=== PATIENT | male | born 1960 ===

== ENCOUNTER 2016-08-12 07:44 | Emergency (ER) | payer OTHER ==
[2016-08-12 08:00] VITALS: BMI 21.1
[2016-08-12 08:04] VITALS: BP 167/101; PULSE 82; RESP 18; TEMP 98.5; O2SAT 97
--- NOTE | 2016-08-12 09:13 | ED PDOC ---
Arrival/HPI - General Chief Complaint: Abdominal Pain Time Seen by Provider: 08/12/16 08:02 Historian: Patient - History of Present Illness Narrative History of Present Illness (Text): 08/12/16 09:06 A 55 year old male, whose past medical history includes hepatitis c and asthma, presents to the emergency department complaining of constant sharp right sided abdominal pain for the past several months. Patient denies any relieving or exacerbating factors. Patient notes mild constipation but denies any fever, chills, nausea, vomiting, chest pain, shortness of breath or any other complaints. PMD: Dr. Gutierres Time/Duration: Other (few months) Symptom Course: Unchanged Quality: Other Context: Home Past Medical History - Provider Review Nursing Documentation Reviewed: Yes - Cardiac Hx Hypertension: No Hx Peripheral Edema: Yes - Pulmonary Hx Asthma: Yes - Neurological Hx Seizures: No - HEENT Hx HEENT Disorder: No - Renal Hx Renal Disorder: No - Endocrine/Metabolic Hx Endocrine Disorders: No - Hematological/Oncological Hx Blood Disorders: No (pt states he is unsure) - Integumentary Hx Dermatological Disorder: No - Musculoskeletal/Rheumatological Hx Musculoskeletal Disorders: No Hx Falls: No - Gastrointestinal Hx Gastrointestinal Disorders: No - Genitourinary/Gynecological Hx Sexually Transmitted Diseases: No - Psychiatric Hx Substance Use: Yes (HEROIN) - Anesthesia Hx Anesthesia: Yes Hx Anesthesia Reactions: No Hx Malignant Hyperthermia: No - Suicidal Assessment Feels Threatened In Home Enviroment: No Family/Social History - Physician Review Nursing Documentation Reviewed: Yes Family/Social History: No Known Family HX Smoking Status: Heavy Smoker > 10 Cigarettes Daily Hx Alcohol Use: No Hx Substance Use: Yes (HEROIN) Substance used: heroin Allergies/Home Meds Allergies/Adverse Reactions: Allergies No Known Allergies Allergy (Verified 11/10/15 11:42) Home Medications: Home Meds Medication Instructions Recorded Confirmed Sofosbuvir/Velpatasvir [Epclusa 1 each PO DAILY 08/12/16 08/12/16 400 mg-100 mg Tablet] Review of Systems - Physician Review All systems were reviewed & negative as marked: Yes - Review of Systems Constitutional: absent: Fevers, Night Sweats Respiratory: absent: SOB Cardiovascular: absent: Chest Pain Gastrointestinal: Abdominal Pain, Constipation. absent: Nausea, Vomiting Physical Exam Vital Signs Reviewed: Yes Vital Signs Temp Pulse Resp BP Pulse Ox 08/12/16 08:00 98.5 F 82 18 167/101 H 97 Temperature: Afebrile Blood Pressure: Hypertensive Pulse: Regular Respiratory Rate: Normal Appearance: Positive for: Well-Appearing, Non-Toxic, Comfortable Pain Distress: None Mental Status: Positive for: Alert and Oriented X 3 - Systems Exam Head: Present: Atraumatic, Normocephalic Pupils: Present: PERRL Extroacular Muscles: Present: EOMI Conjunctiva: Present: Normal Mouth: Present: Moist Mucous Membranes Neck: Present: Normal Range of Motion Respiratory/Chest: Present: Clear to Auscultation, Good Air Exchange. No: Respiratory Distress, Accessory Muscle Use Cardiovascular: Present: Regular Rate and Rhythm, Normal S1, S2. No: Murmurs Abdomen: Present: Tenderness (RUQ and epigastric tendenress to palpation), Normal Bowel Sounds, Guarding (Mild). No: Distention, Peritoneal Signs Back: Present: Normal Inspection Upper Extremity: Present: Normal Inspection. No: Cyanosis, Edema Lower Extremity: Present: Normal Inspection. No: Edema Neurological: Present: GCS=15, CN II-XII Intact, Speech Normal Skin: Present: Warm, Dry, Normal Color. No: Rashes Psychiatric: Present: Alert, Oriented x 3, Normal Insight, Normal Concentration Medical Decision Making ED Course and Treatment: 08/12/16 09:06 Impression: A 55 year old male presents with right sided abdominal pain. Notes mild constipation but denies any fever, nausea, vomiting or diarrhea. Differential Diagnosis included but are not limited to: Biliary colic vs. Gastritis vs. Pancreatitis Progress Notes: Patient reports he has to be in court today and would like to leave emergency room. The patient is choosing to leave against medical advice. I have personally explained to the patient that choosing to do so may result in permanent bodily harm or . I have discussed at great length that without further evaluation and monitoring there may be unforeseen circumstances and/or deterioration causing permanent bodily harm or as a result of their choice. The patient is alert, oriented, and shows the mental capacity to make clear decisions regarding the patients health care at this time. The patient continues to wish to leave against medical advice. In light of the patients decision to leave against medical advice, follow-up has been arranged and the patient is aware of the importance to following up as instructed. The patient has been advised that they should return to the emergency room immediately if they change their mind at any time, or if their condition begins to change or worsen in any way. - Scribe Statement The provider has reviewed the documentation as recorded by the Lazara Bernabe Provider Scribe Attestation: All medical record entries made by the Scribe were at my direction and personally dictated by me. I have reviewed the chart and agree that the record accurately reflects my personal performance of the history, physical exam, medical decision making, and the department course for this patient. I have also personally directed, reviewed, and agree with the discharge instructions and disposition. Disposition/Present on Arrival - Present on Arrival Any Indicators Present on Arrival: No History of DVT/PE: No History of Uncontrolled Diabetes: No Urinary Catheter: No History of Decub. Ulcer: No History Surgical Site Infection Following: None - Disposition Have Diagnosis and Disposition been Completed?: Yes Diagnosis: Abdominal pain Disposition: HOME/ ROUTINE Disposition Time: 09:06 Patient Problems: Current Active Problems Problem Status Onset Abdominal pain Acute Condition: GOOD Discharge Instructions (ExitCare): Acute Abdominal Pain (ED) Additional Instructions: Mr Dobbins, thank you for letting us take care of you today. Your provider was Dr. Sommer. You were treated for Abdominal Pain. The emergency medical care you received today was directed at your acute symptoms. You left against medical advice but are advised to return to the Emergency Department if your symptoms worsen, do not improve, or if you have any other problems. Please contact your doctor or call one of the physicians/clinics you have been referred to that are listed on the Patient Visit Information form that is included in your discharge packet. Bring any paperwork you were given at discharge with you along with any medications you are taking to your follow up visit. Our treatment cannot replace ongoing medical care by a primary care provider (PCP) outside of the emergency department. Thank you for allowing [facility] of your care today. If you had an X-Ray or CT scan: A Radiologist will review the ED reading if any change in treatment is needed we will contact you. If you had a blood, urine, or wound culture: It will take several days for the results, if any change in treatment is needed we will contact you. If you had an STI test: It will take 48 hours for the results. Please call after 1 week if you have not heard back. Referrals: Christelle Gutierres MD [Primary Care Provider] - Follow up with primary
== END 2016-08-12 08:53 | disposition home or self-care (01) ==
LOC: ED 07:44
DX: R10.9 Unspecified abdominal pain (principal)

== ENCOUNTER 2016-09-05 23:00 | Observation (INO) | payer SELFPAY ==
[2016-09-05 23:23] VITALS: BMI 20.5
[2016-09-05 23:30] VITALS: O2SAT 97
--- NOTE | 2016-09-05 23:41 | ED PDOC ---
Arrival/HPI - General Chief Complaint: Abdominal Pain Time Seen by Provider: 09/05/16 23:35 Historian: Patient - History of Present Illness Narrative History of Present Illness (Text): 09/05/16 23:41 Mainor Mari is a 55 year old male, whose past medical history includes Hepatitis C and asthma, who presents to the Emergency department complaining of RUQ pain for several months. Patient admits to drinking beer today. Patient denies any fever, chills, chest pain, shortness of breath, diarrhea, urinary symptoms, back pain, neck pain, headache, dizziness, or any other complaints. PMD: Dr. Gutierres Time/Duration: Other (Several months) Symptom Onset: Gradual Symptom Course: Unchanged Activities at Onset: Light Context: Home Past Medical History - Provider Review Nursing Documentation Reviewed: Yes - Cardiac Hx Cardiac Disorders: Yes Hx Hypertension: No Hx Peripheral Edema: Yes - Pulmonary Hx Asthma: Yes - Neurological Hx Seizures: No - HEENT Hx HEENT Disorder: No - Renal Hx Renal Disorder: No - Endocrine/Metabolic Hx Endocrine Disorders: No - Hematological/Oncological Hx Blood Disorders: No (pt states he is unsure) Hx Cirrhosis: Yes Hx Hepatitis C: Yes - Integumentary Hx Dermatological Disorder: No - Musculoskeletal/Rheumatological Hx Musculoskeletal Disorders: No Hx Falls: No - Gastrointestinal Hx Gastrointestinal Disorders: Yes Hx Fatty Liver Disease: Yes - Genitourinary/Gynecological Hx Sexually Transmitted Diseases: No - Psychiatric Hx Substance Use: Yes (HEROIN) - Anesthesia Hx Anesthesia: Yes Hx Anesthesia Reactions: No Hx Malignant Hyperthermia: No - Suicidal Assessment Feels Threatened In Home Enviroment: No Family/Social History - Physician Review Nursing Documentation Reviewed: Yes Family/Social History: Unknown Family HX Smoking Status: Heavy Smoker > 10 Cigarettes Daily Hx Alcohol Use: No Hx Substance Use: Yes (HEROIN) Substance used: heroin Allergies/Home Meds Allergies/Adverse Reactions: Allergies No Known Allergies Allergy (Verified 09/05/16 23:23) Home Medications: Home Meds Medication Instructions Recorded Confirmed Sofosbuvir/Velpatasvir [Epclusa 1 each PO DAILY 08/12/16 09/05/16 400 mg-100 mg Tablet] Review of Systems - Physician Review All systems were reviewed & negative as marked: Yes - Review of Systems Constitutional: Normal. absent: Fevers Eyes: Normal ENT: Normal Respiratory: Normal. absent: SOB, Cough Cardiovascular: Normal. absent: Chest Pain Gastrointestinal: Abdominal Pain (+RUQ pain). absent: Diarrhea, Nausea, Vomiting Genitourinary Male: Normal Musculoskeletal: Normal. absent: Back Pain, Neck Pain Skin: Normal Neurological: Normal. absent: Headache, Dizziness Endocrine: Normal Hemo/Lymphatic: Normal Psychiatric: Normal Physical Exam Vital Signs Reviewed: Yes Vital Signs Temp Pulse Resp BP Pulse Ox 09/05/16 23:06 98.6 F 92 H 15 111/76 97 Temperature: Afebrile Blood Pressure: Normal Pulse: Regular Respiratory Rate: Normal Appearance: Positive for: Well-Appearing, Non-Toxic, Comfortable Pain Distress: None Mental Status: Positive for: Alert and Oriented X 3 - Systems Exam Head: Present: Atraumatic, Normocephalic Pupils: Present: PERRL Extroacular Muscles: Present: EOMI Conjunctiva: Present: Normal Mouth: Present: Moist Mucous Membranes Neck: Present: Normal Range of Motion Respiratory/Chest: Present: Clear to Auscultation, Good Air Exchange. No: Respiratory Distress, Accessory Muscle Use Cardiovascular: Present: Regular Rate and Rhythm, Normal S1, S2. No: Murmurs Abdomen: Present: Tenderness (RUQ tenderness), Normal Bowel Sounds. No: Distention, Peritoneal Signs Back: Present: Normal Inspection Upper Extremity: Present: Normal Inspection. No: Cyanosis, Edema Lower Extremity: Present: Normal Inspection. No: Edema Neurological: Present: GCS=15, CN II-XII Intact, Speech Normal Skin: Present: Warm, Dry, Normal Color. No: Rashes Psychiatric: Present: Alert, Oriented x 3, Normal Insight, Normal Concentration Medical Decision Making ED Course and Treatment: 09/05/16 23:41 Impression: 55 year old male complaining of RUQ pain for several months. Plan: -- CT Abdomen and Pelvis w/o contrast -- EKG -- Labs, ammonia level, cardiac enzymes, lipase, amylase, alcohol level -- UA -- Reassess and disposition Prior Visits: Notes and results from previous visits were reviewed. On 08/12/2016, pt was seen in the Emergency department for right-sided abdominal pain. Pt left against medical advice. Progress Notes: Reviewed EKG, NSR at [address]-segment elevations or depressions, no T-wave inversions, normal intervals. - Lab Interpretations I have reviewed the lab results: Yes - RAD Interpretation Narrative RAD Interpretations (Text): CT Abdomen and Pelvis shows: Lower thorax: Lung bases with changes of paraseptal emphysema, small area of fibrotic change in the right lower lobe and also in the right middle lobe, see for example sagittal image 59 and adjacent, axial image 2 and 1. There are no findings to suggest acute lung infection. Suggestion of calcifications in keeping with coronary artery disease. Air in the esophagus in keeping with reflux. Small hiatus hernia. ABDOMEN: Liver: Unremarkable. Gallbladder and bile ducts: Unremarkable. No calcified stones. No ductal dilation. Pancreas: Unremarkable. No ductal dilation. Spleen: Unremarkable. No splenomegaly. Adrenals: Unremarkable. No mass. Kidneys and ureters: No previous CT of the abdomen or pelvis is available for comparison, there was an ultrasound of the abdomen November 19, 2015 which showed no hydronephrosis or stones and no specific pathology elsewhere in the abdomen at that time. Possible small right sided renal alculus versus calcification of the pyramid suggestive coronal image 75. No hydronephrosis of either kidney. No definite ureteral stones are seen, noting that punctate stones or noncalcified stones may not be well seen on CT. Stomach and bowel: No evidence of bowel dilatation noting that the majority of the bowel wall cannot be evaluated. There are no findings of bowel obstruction. No findings to suggest acute diverticulitis. Appendix: No findings to suggest acute appendicitis. PELVIS: Bladder: Unremarkable. No stones. Reproductive: Coarse calcifications in the prostate which measures 4.2 cm. ABDOMEN and PELVIS: Intraperitoneal space: Unremarkable. No free air. No significant fluid collection. Bones/joints: There is compression fracture of vertebra L1. No dislocation. Old fracture of the right inferior pubic ramus. Soft tissues: No abdominal wall hernias containing bowel. Vasculature: Scattered atherosclerotic calcifications. No abdominal aortic aneurysm. Lymph nodes: Unremarkable. No enlarged lymph nodes. IMPRESSION: Noncontrast CT with no specific explanation of the reported generalized abdominal pain. No findings to suggest acute appendicitis, no findings to suggest diverticulitis or bowel obstruction. No findings of biliary abnormalities. Questioned calcification associated with the right kidney as above, clinical and laboratory correlation. Radiology Orders: 09/05/16 23:48 ABD & PELVIS W/O PO OR IV CONT [CT] Stat Information Services Vice President: Radiologist - EKG Interpretation Interpreted by ED Physician: Yes Type: 12 lead EKG - Medication Orders Current Medication Orders: Sodium Chloride (Sodium Chloride 0.9%) 1,000 mls @ 80 mls/hr IV .[id number] Last Admin: 09/06/16 00:08 Dose: 80 mls/hr ED OBSERVATION Discharge: Yes Date of observation admission: 09/06/16 Time of observation admission: 00:00 - Observation admission statement Patient is being placed in observation because:: alcohol abuse - Goals of Observation Goals of observation are:: sobriety - Progress Note Progress Note: 09/06/16 00:00 Pt in no acute distress. Admits to drinking. Will observe pending CT, results, and sobriety. 09/06/16 02:00 Pt resting comfortably, no acute distress. 09/06/16 02:46 Reviewed radiology, CT Abdomen and Pelvis shows: Noncontrast CT with no specific explanation of the reported generalized abdominal pain. No findings to suggest acute appendicitis, no findings to suggest diverticulitis or bowel obstruction. No findings of biliary abnormalities. Questioned calcification associated with the right kidney as above, clinical and laboratory correlation. 09/06/16 03:30 Pt resting comfortably, states he does not want to be screened by PES. 09/06/16 03:59 Pt is awake, alert, and ambulating with steady gait. Pt cleared for d/c. - Scribe Statement The provider has reviewed the documentation as recorded by the Scribe Milady Wong All medical record entries made by the Scribe were at my direction and personally dictated by me. I have reviewed the chart and agree that the record accurately reflects my personal performance of the history, physical exam, medical decision making, and the department course for this patient. I have also personally directed, reviewed, and agree with the discharge instructions and disposition. Disposition/Present on Arrival - Present on Arrival Any Indicators Present on Arrival: No History of DVT/PE: No History of Uncontrolled Diabetes: No Urinary Catheter: No History of Decub. Ulcer: No History Surgical Site Infection Following: None - Disposition Have Diagnosis and Disposition been Completed?: Yes Diagnosis: Alcohol abuse Disposition: HOME/ ROUTINE Disposition Time: 03:59 Patient Problems: Current Active Problems Problem Status Onset Alcohol abuse Acute Condition: GOOD
[2016-09-05] MEDS ORDERED: Sodium Chloride 0.9% 1,000 ML IV SCH (23:45)
[2016-09-06 00:38] LABS: BASO # 0.04 K/mm3 (0.0-2.0); BASO % 0.3 % (0.0-3.0); EOS # 0.2 (0.0-0.7); EOS % 1.7 % (1.5-5.0); GRAN # 6.42 (1.4-6.5); HEMOGLOBIN 14.5 gm/dL (14.0-18.0); LYMPH # 5.1 (1.2-3.4); LYMPH % 40.3 % (22.0-35.0); MEAN CELL VOLUME 87.5 fL (80.0-105.0); MEAN CORPUSCULAR HEMOGLOBIN 30.3 pg (25.0-35.0); MEAN CORPUSCULAR HGB CONC 34.6 g/dl (31.0-37.0); MEAN PLATELET VOLUME 9.6 fl (7.0-11.0); MONO # 0.8 (0.1-0.6); MONO % 6.7 % (1.0-6.0); PLATELET COUNT 295 10^3/uL (120.0-450.0); RBC 4.79 10^6/uL (3.5-6.1); RED CELL DISTRIBUTION WIDTH 15.7 % (11.5-14.5); WHITE BLOOD COUNT 12.6 10^3/ul (4.5-11.0)
[2016-09-06 00:40] LABS: INR 0.99 (0.93-1.08); PARTIAL THROMBOPLASTIN TIME 25.8 Seconds (23.7-30.8); PROTHROMBIN TIME 10.7 Seconds (9.9-11.8)
[2016-09-06 00:47] LABS: ALB/GLOB RATIO 1.1 (1.1-1.8); ALBUMIN 4.3 g/dL (3.0-4.8); ALT/SGPT 23 U/L (7-56); AMYLASE 94 U/L (35-125); AST/SGOT 28 U/L (15-59); BLOOD UREA NITROGEN 11 mg/dL (7-21); CALCIUM 8.7 mg/dL (8.4-10.5); GFR AFRICAN-AMERICAN > 60; GFR NON-AFRICAN AMERICAN > 60; LIPASE 38 U/L (23-300)
[2016-09-06 00:58] LABS: TROPONIN I < 0.01 ng/mL
[2016-09-06 01:55] LABS: URINE BILIRUBIN NEGATIVE (NEGATIVE); URINE BLOOD NEGATIVE (NEGATIVE); URINE GLUCOSE (UA) NEGATIVE (NEGATIVE); URINE LEUKOCYTE ESTERASE NEGATIVE Leu/uL (NEGATIVE); URINE NITRATE NEGATIVE (NEGATIVE); URINE PROTEIN NEGATIVE mg/dL (<30 mg/dL); URINE UROBILINOGEN 0.2 E.U./dL (<1 E.U./dL)
[2016-09-06 02:02] LABS: URINE APPEARANCE CLEAR (CLEAR); URINE COLOR YELLOW (YELLOW)
--- NOTE | 2016-09-06 02:42 | CT ---
EXAM: CT Abdomen and Pelvis Without Intravenous Contrast CLINICAL HISTORY: 55 years old, male; Pain; Abdominal pain; Generalized TECHNIQUE: Axial computed tomography images of the abdomen and pelvis without intravenous contrast. This CT exam was performed using one or more of the following dose reduction techniques: automated exposure control, adjustment of the mA and/or kV according to patient size, and/or use of iterative reconstruction technique. Coronal and sagittal reformatted images were created and reviewed. EXAM DATE/TIME: Exam ordered 09/06/2016 1:09 AM COMPARISON: No relevant prior studies available. FINDINGS: Lower thorax: Lung bases with changes of paraseptal emphysema, small area of fibrotic change in the right lower lobe and also in the right middle lobe, see for example sagittal image 59 and adjacent, axial image 2 and 1. There are no findings to suggest acute lung infection. Suggestion of calcifications in keeping with coronary artery disease. Air in the esophagus in keeping with reflux. Small hiatus hernia. ABDOMEN: Liver: Unremarkable. Gallbladder and bile ducts: Unremarkable. No calcified stones. No ductal dilation. Pancreas: Unremarkable. No ductal dilation. Spleen: Unremarkable. No splenomegaly. Adrenals: Unremarkable. No mass. Kidneys and ureters: No previous CT of the abdomen or pelvis is available for comparison, there was an ultrasound of the abdomen November 19, 2015 which showed no hydronephrosis or stones and no specific pathology elsewhere in the abdomen at that time. Possible small right sided renal calculus versus calcification of the pyramid suggestive coronal image 75. No hydronephrosis of either kidney. No definite ureteral stones are seen, noting that punctate stones or noncalcified stones may not be well seen on CT. Stomach and bowel: No evidence of bowel dilatation noting that the majority of the bowel wall cannot be evaluated. There are no findings of bowel obstruction. No findings to suggest acute diverticulitis. Appendix: No findings to suggest acute appendicitis. PELVIS: Bladder: Unremarkable. No stones. Reproductive: Coarse calcifications in the prostate which measures 4.2 cm. ABDOMEN and PELVIS: Intraperitoneal space: Unremarkable. No free air. No significant fluid collection. Bones/joints: There is compression fracture of vertebra L1. No dislocation. Old fracture of the right inferior pubic ramus. Soft tissues: No abdominal wall hernias containing bowel. Vasculature: Scattered atherosclerotic calcifications. No abdominal aortic aneurysm. Lymph nodes: Unremarkable. No enlarged lymph nodes. IMPRESSION: Noncontrast CT with no specific explanation of the reported generalized abdominal pain. No findings to suggest acute appendicitis, no findings to suggest diverticulitis or bowel obstruction. No findings of biliary abnormalities. Questioned calcification associated with the right kidney as above, clinical and laboratory correlation. Small hiatus hernia with an air-fluid level in the distal esophagus, clinical correlation. Coronary artery calcification. If there has been additional previous imaging please compare on site.
[2016-09-06 03:12] LABS: BARBITURATES, UR NEGATIVE (NEGATIVE); BENZODIAZEPINES, UR NEGATIVE (NEGATIVE); OPIATES, UR POSITIVE (NEGATIVE); PHENCYCLIDINE, UR NEGATIVE (NEGATIVE)
[2016-09-06 04:09] VITALS: BP 128/77; PULSE 772; RESP 18; TEMP 97.9
--- NOTE | 2016-09-06 17:41 | CARD ---
APPROVED REPORT EKG Measurement Heart [id number] <Conclusion> Normal sinus rhythm Normal ECG
== END 2016-09-06 04:00 | disposition home or self-care (01) ==
LOC: ED 23:00 → EROBSV 09-06
PROVIDERS: ADMIT Emergency Medicine; ATTEND Emergency Medicine
DX: F10.10 Alcohol abuse, uncomplicated (principal); Y90.5 Blood alcohol level of 100-119 mg/100 ml
CPT/HCPCS: 74176; 80053; 81003; 82140; 82150; 82550; 83615; 83690; 84484; 85025; 85610; 85730; 93005; 99283; G0378; G0480; J7040

== ENCOUNTER 2016-12-12 06:51 | Emergency (ER) | payer OTHER ==
[2016-12-12 06:53] VITALS: BMI 22.7
[2016-12-12 07:10] VITALS: TEMP 98.2
--- NOTE | 2016-12-12 07:33 | ED PDOC ---
Arrival/HPI - General Chief Complaint: Shortness Of Breath Time Seen by Provider: 12/12/16 07:03 Historian: Patient - History of Present Illness Narrative History of Present Illness (Text): 12/12/16 07:14 A 56 year old male, whose past medical history includes Hepatitis C and asthma, presents to the emergency department complaining of shortness of breath and discomfort in throat. Patient reports he was "drinking a beer" earlier this morning. He became nausea and had an episode of vomiting around 03:00. After vomiting, patient feels "something is stuck in his throat." Also, patient mentions he is able to swallow, and denies of any eating and choking. Patient denies of any chest pain, abdominal pain, hematemesis, or any other complaints. PMD: Dr. Gutierres Time/Duration: Other (earlier this morning at 03:00) Past Medical History - Provider Review Nursing Documentation Reviewed: Yes - Cardiac Hx Cardiac Disorders: Yes Hx Hypertension: No Hx Peripheral Edema: Yes - Pulmonary Hx Asthma: Yes - Neurological Hx Seizures: No - HEENT Hx HEENT Disorder: No - Renal Hx Renal Disorder: No - Endocrine/Metabolic Hx Endocrine Disorders: No - Hematological/Oncological Hx Blood Disorders: No (pt states he is unsure) Hx Cirrhosis: Yes Hx Hepatitis C: Yes - Integumentary Hx Dermatological Disorder: No - Musculoskeletal/Rheumatological Hx Musculoskeletal Disorders: No Hx Falls: No - Gastrointestinal Hx Gastrointestinal Disorders: Yes Hx Fatty Liver Disease: Yes - Genitourinary/Gynecological Hx Sexually Transmitted Diseases: No - Psychiatric Hx Substance Use: Yes (HEROIN) - Anesthesia Hx Anesthesia: Yes Hx Anesthesia Reactions: No Hx Malignant Hyperthermia: No - Suicidal Assessment Feels Threatened In Home Enviroment: No Family/Social History - Physician Review Nursing Documentation Reviewed: Yes Family/Social History: No Known Family HX Smoking Status: Heavy Smoker > 10 Cigarettes Daily Hx Alcohol Use: No Hx Substance Use: Yes (HEROIN) Substance used: heroin Allergies/Home Meds Allergies/Adverse Reactions: Allergies No Known Allergies Allergy (Verified 12/12/16 06:59) Home Medications: Home Meds Medication Instructions Recorded Confirmed No Known Home Med 12/12/16 12/12/16 Physical Exam - Physical Exam Narrative Physical Exam (Text): Head: Atraumatic. Normocephalic. Eyes: PERRL. EOMI. Conjunctivae are not pale. ENT: Mucous membranes are moist and intact. Oropharynx is clear and symmetric. No drooling. No stridor. No uvular edema. No pharyngeal erythema or exudates. No foreign body. Neck: Supple. Full ROM. No JVD. No lymphadenopathy. No bruits. Trachea midline. No crepitus or soft tissue swelling. No midline bony pain. Cardiovascular: Regular rate. Regular rhythm. No murmurs, rubs, or gallops. Distal pulses are 2+ and symmetric. Pulmonary/Chest: No evidence of respiratory distress. Clear to auscultation bilaterally. No wheezing, rales or rhonchi. No crepitus. No stridor. Abdominal: Soft and non-distended. There is no tenderness. No rebound, guarding, or rigidity. No organomegaly. Good bowel sounds. Back: No CVA tenderness. NO midline pain. Extremities: No edema. No cyanosis. No clubbing. Full range of motion in all extremities. No calf tenderness. Skin: Skin is warm and dry. No petechiae. No purpura. Neurological: Alert, awake, and oriented to person, place, time, and situation. Normal speech. Steady gait. No focal motor or sensory deficits. Psychiatric: Good eye contact. Normal interaction, affect, and behavior. Denies depression or suicidal ideation. Vital Signs Reviewed: Yes Vital Signs Temp Pulse Resp BP Pulse Ox 12/12/16 09:50 76 18 130/70 97 12/12/16 09:00 79 18 133/81 99 12/12/16 07:39 20 12/12/16 07:09 98.2 F 78 16 138/73 97 Temperature: Afebrile Blood Pressure: Normal Pulse: Regular Respiratory Rate: Normal Appearance: Positive for: Well-Appearing Pain Distress: None Mental Status: Positive for: Alert and Oriented X 3 Medical Decision Making ED Course and Treatment: 12/12/16 07:20 Impression: 56 year old male experiencing discomfort in throat and shortness of breath after episode of vomiting several hours ago. Differential Diagnosis included but are not limited to: Esophageal Foreign Body vs. Pharyngitis vs. Reflux vs. Boerhaave's Syndrome Plan: -- EKG -- Neck CT -- Chest X-ray -- Labs -- Pepcid -- Reassess and disposition Progress Notes: Patient on evaluation is speaking full sentences. NO STRIDOR. He is handling secretions. Denies chest pain or back pain currently. Denies hematemesis or hemoptysis. No crepitus noted on exam. Lungs clear. He is able to swallow. Reports mild voice hoarseness. He DENIES any neck/throat discomfort prior to vomiting several hours ago. Denies recent fevers or uri symptoms or sore throat. Oropharynx exam reveals no uvular edema, no exudates or abscess, no drroling. EKG: Ordered, reviewed, and independently interpreted the EKG. Rate : 55 BPM Rhythm : Sinus bradycardia Interpretation : No acute ST elevations. Comparison : No previous EKG for comparison. 12/12/2016 9:04 He denies choking episode. Due to neck discomfort, ct neck ordered. Neck CT IMPRESSION: There appears to be some mild nonspecific paralaryngeal edema with slight narrowing of the airway at the elvel of the true vocal cords. Addition cup mild asymmetry of the vallecular likely part due to some encroachment of lingual tonsils as well as some residual and or retained secretion. There may also be secretion within the pyriform sinus region as well. The small palatine tnsil calcification likely dystrophic postinflammatory sequela. Biapical pleural thickening with parenchymal scarring fibrosis and emphysematous changes as above. Dictator: Marco Antonio Street DO Abnormal findings on CT neck reviewed with patient IN LAYMEN'S TERMS. He is alert, oriented, NOT intoxicated, not in distress, and is able to repeat back stated abnormal CT neck findings and abnormal chest xray findings. He states he "feels better" "since it first started". He has no stridor and is able to handle secretions. I discussed his risks factors of smoking, etoh use in past, RISK OF BLEEDING, RISK OF CANCER, , disability. IV steroids given. I consulted with oncall ENT. I have clearly expressed my desire to ADMIT PATIENT for symptoms and abnormal findings on imaging studies, and reviewed risks of signing out against medical advice. Nurse witnessed. He states he "needs to take care of things at home and then I'll come back". I have advised against this and explained risks of sudden deterioration. 12/12/16 09:32 Leaving Against Medical Advice (AMA): The patient is choosing to leave against medical advice. I have personally explained to the patient that choosing to do so may result in permanent bodily harm or . I have discussed at great length that without further evaluation and monitoring there may be unforeseen circumstances and/or deterioration causing permanent bodily harm or as a result of their choice. The patient is alert, oriented, and shows the mental capacity to make clear decisions regarding the patients health care at this time. The patient continues to wish to leave against medical advice. In light of the patients decision to leave against medical advice, follow-up has been arranged and the patient is aware of the importance to following up as instructed. The patient has been advised that they should return to the emergency room immediately if they change their mind at any time, or if their condition begins to change or worsen in any way. - Lab Interpretations Lab Results: 12/12/16 07:37 12/12/16 07:37 Lab Results 12/12/16 07:37: Alcohol, Quantitative < 10 12/12/16 07:37: Sodium 139, Potassium 3.9, Chloride 102, Carbon Dioxide 28, Anion Gap 13, BUN 8, Creatinine 0.6 L, Est GFR ( Amer) > 60, Est GFR (Non -Af Amer) > 60, Random Glucose 107, Calcium 8.4, Total Bilirubin 0.7, AST 63 H, ALT 44, Alkaline Phosphatase 62, Lactate Dehydrogenase 528, Total Creatine Kinase 226, Troponin I < 0.01, NT-Pro-B Natriuret Pep 61.2, Total Protein 7.4, Albumin 4.0, Globulin 3.4, Albumin/Globulin Ratio 1.2, Amylase 88, Lipase 60 12/12/16 07:37: PT 10.4, INR 0.96, APTT 26.1 12/12/16 07:37: WBC 8.7 D, RBC 4.65, Hgb 14.1, Hct 42.1, MCV 90.5, MCH 30.3, MCHC 33.5, RDW 14.3, Plt Count 290, MPV 9.9, Gran % 65.5, Lymph % (Auto) 22.4, [place] % (Auto) 6.8 H, Eos % (Auto) 4.5, Baso % (Auto) 0.8, Gran # 5.69, Lymph # 1.9, [place] # 0.6, Eos # 0.4, Baso # 0.07 I have reviewed the lab results: Yes - RAD Interpretation Radiology Orders: 12/12/16 07:10 NECK SOFT TISSUE W/O CONTRAST [CT] Stat 12/12/16 07:11 CHEST PORTABLE [RAD] Stat - Medication Orders Current Medication Orders: Discontinued Medications Albuterol/Ipratropium (Duoneb 3 Mg/0.5 Mg (3 Ml) Ud) 3 ml IH STAT STA Stop: 12/12/16 09:24 Last Admin: 12/12/16 09:34 Dose: 3 ml Famotidine (Pepcid) 20 mg IVP STAT STA Stop: 12/12/16 07:13 Last Admin: 12/12/16 07:31 Dose: 20 mg IVP Administration Document 12/12/16 07:31 MB (Rec: 12/12/16 07:31 MB [id number]) Charges for Administration # of IVP Administrations 1 Methylprednisolone (Solu-Medrol) 125 mg IVP STAT STA Stop: 12/12/16 09:16 Last Admin: 12/12/16 09:26 Dose: 125 mg IVP Administration Document 12/12/16 09:26 EWO (Rec: 12/12/16 09:26 EWO [id number]) Charges for Administration # of IVP Administrations 1 - Scribe Statement The provider has reviewed the documentation as recorded by the Lazara Ayala Provider Scribe Attestation: All medical record entries made by the Scribe were at my direction and personally dictated by me. I have reviewed the chart and agree that the record accurately reflects my personal performance of the history, physical exam, medical decision making, and the department course for this patient. I have also personally directed, reviewed, and agree with the discharge instructions and disposition. Disposition/Present on Arrival - Present on Arrival Any Indicators Present on Arrival: No History of DVT/PE: No History of Uncontrolled Diabetes: No Urinary Catheter: No History of Decub. Ulcer: No History Surgical Site Infection Following: None - Disposition Have Diagnosis and Disposition been Completed?: Yes Diagnosis: Dysphagia, Abnormal CT scan, Abnormal chest xray Disposition: AGAINST MEDICAL ADVICE Disposition Time: 09:45 Patient Plan: Discharge Condition: GOOD Forms: [employer] ([place])
[2016-12-12 07:46] LABS: BASO # 0.07 K/mm3 (0.0-2.0); BASO % 0.8 % (0.0-3.0); EOS # 0.4 (0.0-0.7); EOS % 4.5 % (1.5-5.0); GRAN # 5.69 (1.4-6.5); GRAN % 65.5 % (50.0-68.0); HEMATOCRIT 42.1 % (42.0-52.0); LYMPH # 1.9 (1.2-3.4); LYMPH % 22.4 % (22.0-35.0); MEAN CELL VOLUME 90.5 fl (80.0-105.0); MEAN CORPUSCULAR HEMOGLOBIN 30.3 pg (25.0-35.0); MEAN CORPUSCULAR HGB CONC 33.5 g/dl (31.0-37.0); MEAN PLATELET VOLUME 9.9 fl (7.0-11.0); MONO # 0.6 (0.1-0.6); MONO % 6.8 % (1.0-6.0); RED CELL DISTRIBUTION WIDTH 14.3 % (11.5-14.5); WHITE BLOOD COUNT 8.7 10^3/ul (4.5-11.0)
[2016-12-12 07:52] LABS: ALB/GLOB RATIO 1.2 (1.1-1.8); ALKALINE PHOSPHATASE 62 U/L (38-126); ALT/SGPT 44 U/L (7-56); AMYLASE 88 U/L (35-125); AST/SGOT 63 U/L (17-59); BILIRUBIN,TOTAL 0.7 mg/dL (0.2-1.3); BLOOD UREA NITROGEN 8 mg/dL (7-21); CALCIUM 8.4 mg/dL (8.4-10.5); CARBON DIOXIDE 28 mmol/L (21-33); CHLORIDE 102 mmol/L (98-107); GFR AFRICAN-AMERICAN > 60; GLUCOSE,RANDOM 107 mg/dL (70-110); LIPASE 60 U/L (23-300); POTASSIUM 3.9 mmol/L (3.6-5.0); SODIUM 139 mmol/L (132-148); TOTAL PROTEIN 7.4 g/dL (5.8-8.3)
[2016-12-12 07:54] LABS: INR 0.96 (0.93-1.08); PARTIAL THROMBOPLASTIN TIME 26.1 Seconds (23.7-30.8)
[2016-12-12 08:06] LABS: TROPONIN I < 0.01 ng/mL
--- NOTE | 2016-12-12 09:06 | CT ---
PROCEDURE: CT scan neck 12/12/2016 HISTORY: Sensation on of neck swelling after vomiting COMPARISON: No prior TECHNIQUE: Contiguous helical/ transaxial sections of the neck without intravenous contrast. Coronal and sagittal reformats generated. Radiation dose: DLP 312.73 MGy-cm This CT exam was performed using one or more of the following dose reduction techniques: Automated exposure control, adjustment of the mA and/or kV according to patient size, and/or use of iterative reconstruction technique. FINDINGS: There are no large cervical masses or collections. The major salivary glands are unremarkable. The thyroid gland is partially obscured by crossing streak and beam hardening artifact arising from dense clavicles and shoulder girdles. There appear to be some mild vascular calcifications presumably at the level of the carotid bifurcations however due to the lack of circulating intravenous contrast material vascular anatomy is poorly delineated. There tiny calcifications seen in region of the palatine tonsils. Oral cavity structures otherwise unremarkable. There is asymmetry of the vallecula which may be in part due to encroaching of prominent lingual tonsils and some residual/retained secretion. The pyriform sinuses are patent though with diminutive level likely due to some residual and or retained secretion as well. Tip appears to be some mild circumferential para laryngeal soft tissue edema nonspecific with slight narrowing of the airway at the level of the true vocal cords. Chronic -scarring, fibrosis/ honeycombing changes seen in the lung apices which may in part be due to paraseptal emphysema as there are also centrilobular emphysematous changes noted as well. . There also small biapical blebs. There are also small bleb changes present. Centrilobular emphysematous changes are also seen. Mild degenerative spondylosis most notably affecting the C5-C6 and to a lesser degree C6-C7 levels. IMPRESSION: There appears to be some mild nonspecific paralaryngeal edema with slight narrowing of the airway at the level of the true vocal cords. Addition cup mild asymmetry of the vallecular likely in part due to some encroachment of lingual tonsils as well as some residual and or retained secretion. There may also be secretion within the pyriform sinus region as well. The small palatine tonsil calcification likely dystrophic postinflammatory sequela. Biapical pleural thickening with parenchymal scarring fibrosis and emphysematous changes as above. See above discussion for additional details and findings.
[2016-12-12] MEDS ORDERED: Albuterol-Ipratrop 3 mg / 0.5 (3 ml) UD IH STA (09:23)
[2016-12-12 09:38] VITALS: RESP 18
[2016-12-12 09:52] VITALS: BP 130/70; PULSE 76; O2SAT 97
--- NOTE | 2016-12-12 14:10 | RAD ---
HISTORY: sob COMPARISON: Comparison made with concurrent CT scan neck which image the lung apices and upper lung pace. FINDINGS: LUNGS: Centrilobular emphysematous changes of with what appears represent curvilinear atelectasis/ scarring left mid lung field. There is also a small nodular density right lateral mid to lower lung field (overlying right posterior rib). Lungs could represent nipple shadow artifact, possibility of a parenchymal nodule including malignancy not excluded. Recommend followup nonemergent CT scan of the chest. PLEURA: No significant pleural effusion identified, no pneumothorax apparent. CARDIOVASCULAR: Normal. OSSEOUS STRUCTURES: No significant abnormalities. VISUALIZED UPPER ABDOMEN: Normal. OTHER FINDINGS: None. IMPRESSION: Centrilobular emphysematous changes with curvilinear atelectasis and or scarring right mid to upper lung field. Small nodular density right lateral mid to lower lung field which could represent nipple shadow artifact however the possibility of a parenchymal nodule (including malignancy) should be excluded with followup nonemergent CT scan chest. Note that this report was placed in PA review folder followup
--- NOTE | 2016-12-13 12:26 | CARD ---
APPROVED REPORT EKG Measurement Heart [id number] <Conclusion> Sinus bradycardia Otherwise normal ECG
== END 2016-12-12 13:37 | disposition left against medical advice (07) ==
LOC: ED 06:51
DX: R13.10 Dysphagia, unspecified (principal); R91.8 Other nonspecific abnormal finding of lung field; R94.2 Abnormal results of pulmonary function studies; F17.210 Nicotine dependence, cigarettes, uncomplicated
CPT/HCPCS: 70490; 71010; 80053; 80320; 82150; 82550; 83615; 83690; 83880; 84484; 85025; 85610; 85730; 93005; 96374; 96375; 99284; J2930

== ENCOUNTER 2017-01-21 18:01 | Emergency (ER) | payer OTHER ==
[2017-01-21 18:01] VITALS: BMI 22.7
== END 2017-01-21 19:37 | disposition left against medical advice (07) ==
LOC: ED 18:01
DX: Z02.89 Encounter for other administrative examinations (principal); R53.1 Weakness

== ENCOUNTER 2017-01-21 20:31 | Emergency (ER) | payer OTHER ==
[2017-01-21 20:31] VITALS: BMI 22.7
== END 2017-01-21 21:52 | disposition left against medical advice (07) ==
LOC: ED 20:31
DX: Z02.89 Encounter for other administrative examinations (principal); R06.02 Shortness of breath

== ENCOUNTER 2017-03-21 01:38 | Emergency (ER) | payer SELFPAY ==
[2017-03-21 01:40] VITALS: BMI 22.7
[2017-03-21 01:51] VITALS: TEMP 97.9
--- NOTE | 2017-03-21 02:09 | ED PDOC ---
Arrival/HPI - General Chief Complaint: Shortness Of Breath Time Seen by Provider: 03/21/17 01:42 Historian: Patient - History of Present Illness Narrative History of Present Illness (Text): 03/21/17 02:04 Mainor Mari is a 56 year old male, whose past medical history includes Hepatitis C and asthma, who presents to the Emergency department brought in by EMS complaining of shortness of breath. Patient states he woke up prior to arrival with sudden onset of cough, shortness of breath, and chest tightness. Patient states he felt better after receiving oxygen en route. fever, chills, nausea, vomiting, diarrhea, urinary symptoms, back pain, neck pain, headache, dizziness, or any other complaints. Time/Duration: Prior to Arrival Symptom Onset: Gradual Symptom Course: Unchanged Activities at Onset: Light Context: Home Past Medical History - Provider Review Nursing Documentation Reviewed: Yes - Cardiac Hx Cardiac Disorders: No Hx Hypertension: No Hx Peripheral Edema: Yes - Pulmonary Hx Asthma: Yes Hx Chronic Obstructive Pulmonary Disease (COPD): Yes - Neurological Hx Neurological Disorder: No Hx Seizures: No - HEENT Hx HEENT Disorder: No - Renal Hx Renal Disorder: No - Endocrine/Metabolic Hx Endocrine Disorders: No - Hematological/Oncological Hx Blood Disorders: No Hx Cirrhosis: Yes Hx Hepatitis C: Yes - Integumentary Hx Dermatological Disorder: No - Musculoskeletal/Rheumatological Hx Musculoskeletal Disorders: No Hx Falls: No - Gastrointestinal Hx Gastrointestinal Disorders: Yes Hx Fatty Liver Disease: Yes - Genitourinary/Gynecological Hx Genitourinary Disorders: No Hx Sexually Transmitted Diseases: No - Psychiatric Hx Substance Use: No Other/Comment: alcohol abuse - Anesthesia Hx Anesthesia: Yes Hx Anesthesia Reactions: No Hx Malignant Hyperthermia: No - Suicidal Assessment Feels Threatened In Home Enviroment: No Family/Social History - Physician Review Nursing Documentation Reviewed: Yes Family/Social History: Unknown Family HX Smoking Status: Heavy Smoker > 10 Cigarettes Daily Hx Alcohol Use: Yes (beer) Frequency of alcohol use: Daily Hx Substance Use: No Substance used: heroin Allergies/Home Meds Allergies/Adverse Reactions: Allergies No Known Allergies Allergy (Verified 03/21/17 01:51) Review of Systems - Physician Review All systems were reviewed & negative as marked: Yes - Review of Systems Constitutional: Normal. absent: Fevers Eyes: Normal ENT: Normal Respiratory: SOB, Cough Cardiovascular: Chest Pain Gastrointestinal: Normal. absent: Abdominal Pain, Diarrhea, Nausea, Vomiting Genitourinary Male: Normal. absent: Dysuria, Frequency, Hematuria, Urinary Output Changes Musculoskeletal: Normal. absent: Back Pain, Neck Pain Skin: Normal. absent: Rash Neurological: Normal. absent: Headache, Dizziness Endocrine: Normal Hemo/Lymphatic: Normal Psychiatric: Normal Physical Exam Vital Signs Reviewed: Yes Vital Signs Temp Pulse Resp BP Pulse Ox 03/21/17 05:00 70 18 125/80 95 03/21/17 04:30 65 122/85 98 03/21/17 02:20 18 97 03/21/17 01:47 97.9 F 76 20 97 Temperature: Afebrile Blood Pressure: Normal Pulse: Regular Respiratory Rate: Normal Appearance: Positive for: Well-Appearing, Non-Toxic, Comfortable Pain Distress: None Mental Status: Positive for: Alert and Oriented X 3 - Systems Exam Head: Present: Atraumatic, Normocephalic Pupils: Present: PERRL Extroacular Muscles: Present: EOMI Conjunctiva: Present: Normal Mouth: Present: Moist Mucous Membranes Neck: Present: Normal Range of Motion Respiratory/Chest: Present: Wheezes. No: Respiratory Distress, Accessory Muscle Use Cardiovascular: Present: Regular Rate and Rhythm, Normal S1, S2. No: Murmurs Abdomen: Present: Normal Bowel Sounds. No: Tenderness, Distention, Peritoneal Signs Back: Present: Normal Inspection Upper Extremity: Present: Normal Inspection. No: Cyanosis, Edema Lower Extremity: Present: Normal Inspection. No: Edema Neurological: Present: GCS=15, CN II-XII Intact, Speech Normal Skin: Present: Warm, Dry, Normal Color. No: Rashes Psychiatric: Present: Alert, Oriented x 3, Normal Insight, Normal Concentration Medical Decision Making ED Course and Treatment: 03/21/17 02:04 Impression: 56 year old male complaining of shortness of breath, cough, and chest tightness. Differential Diagnosis included but are not limited to: COPD vs. asthma Plan: -- EKG -- CXR -- Labs, cardiac enzymes, VBG -- Duoneb -- Solu-medrol -- Reassess and disposition Progress Notes: Reviewed EKG, NSR at 75 bpm. Non-specific ST/T wave changes. 03/21/17 03:33 CXR reviewed, shows no acute processes. 03/21/17 05:09 On reevaluation the patient feels better and is in no acute distress. Wheezing resolved. I have discussed the results and plan with the patient, who expresses understanding. Patient given the opportunity to ask question, all questions were answered and there is agreement with the plan to discharge the patient home. Patient is stable for discharge. Patient was instructed to follow up with physician/clinic in 1-2 days or return if symptoms persist/worsen or new concerning symptoms arise. - Lab Interpretations Lab Results: 03/21/17 02:20 03/21/17 02:20 Lab Results 03/21/17 02:20: Sodium 143, Chloride 105, Potassium 4.0, Carbon Dioxide 26, Anion Gap 15, BUN 14, Creatinine 0.8, Est GFR ( Amer) > 60, Est GFR (Non- Af Amer) > 60, Random Glucose 102, Calcium 8.8, Total Bilirubin 1.1, AST 65 H, ALT 38, Alkaline Phosphatase 59, Lactate Dehydrogenase 515, Total Creatine Kinase 217, Troponin I < 0.01, Total Protein 7.6, Albumin 4.0, Globulin 3.6, Albumin/Globulin Ratio 1.1 03/21/17 02:20: pO2 179 H, VBG pH 7.33, VBG pCO2 53.0, VBG HCO3 27.9, VBG Total CO2 29.5 H, VBG O2 Sat (Calc) 100.2 H, VBG Base Excess 1.0, VBG Potassium 3.9, Sodium 140.0, Chloride 104.0, Glucose 99, Lactate 1.6, FiO2 21.0, Venous Blood Potassium 3.9 03/21/17 02:20: WBC 6.6 D, RBC 4.53, Hgb 13.7 L, Hct 40.8 L, MCV 90.1, MCH 30.2 , MCHC 33.6, RDW 15.6 H, Plt Count 279, MPV 9.7, Gran % 38.4 L, Lymph % (Auto) 45.3 H, [place] % (Auto) 7.6 H, Eos % (Auto) 7.0 H, Baso % (Auto) 1.7, Gran # 2.53 , Lymph # 3.0, [place] # 0.5, Eos # 0.5, Baso # 0.11 I have reviewed the lab results: Yes - RAD Interpretation Radiology Orders: 03/21/17 02:08 CHEST PORTABLE [RAD] Stat [employer]plic[employer] Supervisor: ED Physician - EKG Interpretation Interpreted by ED Physician: Yes Type: 12 lead EKG - Medication Orders Current Medication Orders: Discontinued Medications Albuterol/Ipratropium (Duoneb 3 Mg/0.5 Mg (3 Ml) Ud) 3 ml IH Q15M SERGIO Stop: 03/21/17 02:46 Last Admin: 03/21/17 02:30 Dose: 3 ml Methylprednisolone (Solu-Medrol) 125 mg IVP ONCE ONE Stop: 03/21/17 02:10 Last Admin: 03/21/17 02:30 Dose: 125 mg IVP Administration Document 03/21/17 02:30 AD (Rec: 03/21/17 02:30 AD [facility] [id number]) Charges for Administration # of IVP Administrations 1 - Scribe Statement The provider has reviewed the documentation as recorded by the Scribe Milady Wong All medical record entries made by the Scribe were at my direction and personally dictated by me. I have reviewed the chart and agree that the record accurately reflects my personal performance of the history, physical exam, medical decision making, and the department course for this patient. I have also personally directed, reviewed, and agree with the discharge instructions and disposition. Disposition/Present on Arrival - Present on Arrival Any Indicators Present on Arrival: No History of DVT/PE: No History of Uncontrolled Diabetes: No Urinary Catheter: No History of Decub. Ulcer: No History Surgical Site Infection Following: None - Disposition Have Diagnosis and Disposition been Completed?: Yes Diagnosis: COPD (chronic obstructive pulmonary disease) Disposition: HOME/ ROUTINE Disposition Time: 05:09 Condition: GOOD Discharge Instructions (ExitCare): COPD (Chronic Obstructive Pulmonary Disease ) (ED) Prescriptions: predniSONE [predniSONE Tab] 20 mg PO TID #15 tab Albuterol HFA [Ventolin HFA] 1 puff IH QID #1 puff Referrals: Christelle Gutierres MD [Primary Care Provider] - Follow up with primary Forms: [employer] ([place])
[2017-03-21] MEDS: Albuterol-Ipratrop 3 mg / 0.5 (3 ml) UD IH SCH ×2 (02:15→02:30)
[2017-03-21 02:34] LABS: BASO # 0.11 K/mm3 (0.0-2.0); BASO % 1.7 % (0.0-3.0); EOS # 0.5 (0.0-0.7); GRAN # 2.53 (1.4-6.5); GRAN % 38.4 % (50.0-68.0); HEMOGLOBIN 13.7 g/dL (14.0-18.0); LYMPH % 45.3 % (22.0-35.0); MEAN CELL VOLUME 90.1 fl (80.0-105.0); MEAN CORPUSCULAR HEMOGLOBIN 30.2 pg (25.0-35.0); MEAN CORPUSCULAR HGB CONC 33.6 g/dl (31.0-37.0); MEAN PLATELET VOLUME 9.7 fl (7.0-11.0); MONO # 0.5 (0.1-0.6); MONO % 7.6 % (1.0-6.0); RBC 4.53 10^6/uL (3.5-6.1); RED CELL DISTRIBUTION WIDTH 15.6 % (11.5-14.5); WHITE BLOOD COUNT 6.6 10^3/ul (4.5-11.0)
[2017-03-21 02:45] LABS: VENOUS BLOOD GAS PO2 179 mm/Hg (30-55); VENOUS BLOOD PH 7.33 (7.32-7.43)
[2017-03-21 02:46] LABS: ALB/GLOB RATIO 1.1 (1.1-1.8); ALT/SGPT 38 U/L (7-56); AST/SGOT 65 U/L (17-59); BLOOD UREA NITROGEN 14 mg/dL (7-21); CALCIUM 8.8 mg/dL (8.4-10.5); GFR AFRICAN-AMERICAN > 60; GFR NON-AFRICAN AMERICAN > 60
[2017-03-21 02:57] LABS: TROPONIN I < 0.01 ng/mL
[2017-03-21 04:30] VITALS: RESP 18
[2017-03-21 05:52] VITALS: BP 125/80; PULSE 70; O2SAT 95
--- NOTE | 2017-03-21 08:54 | RAD ---
HISTORY: Shortness of breath COMPARISON: 12/12/2016. FINDINGS: LUNGS: The lungs are hyperinflated and there is peribronchial thickening with chronic changes in both lungs. No lobar pneumonia. PLEURA: No significant pleural effusion identified, no pneumothorax apparent. CARDIOVASCULAR: Normal. OSSEOUS STRUCTURES: No significant abnormalities. VISUALIZED UPPER ABDOMEN: Normal. OTHER FINDINGS: None. IMPRESSION: No active pulmonary disease. COPD.
--- NOTE | 2017-03-21 16:46 | CARD ---
APPROVED REPORT EKG Measurement Heart [id number] <Conclusion> Normal sinus rhythm Possible Left atrial enlargement Borderline ECG
== END 2017-03-21 05:10 | disposition home or self-care (01) ==
LOC: ED 01:38
DX: J44.9 Chronic obstructive pulmonary disease, unspecified (principal); F17.210 Nicotine dependence, cigarettes, uncomplicated
CPT/HCPCS: 71045; 80053; 82550; 82803; 83615; 84484; 85025; 93005; 96374; 99284; J2930

== ENCOUNTER 2018-06-12 11:39 | Emergency (ER) | payer MEDICAID, OTHER ==
[2018-06-12 11:39] VITALS: BMI 22.7
[2018-06-12 12:10] VITALS: BP 120/78; PULSE 74; RESP 16; TEMP 97.9; O2SAT 97
[2018-06-12] MEDS ORDERED: Oxycodone/Acetaminophen 5/325 mg Tab PO STA (12:11)
--- NOTE | 2018-06-12 12:11 | ED PDOC ---
Arrival/HPI - General Historian: Patient - History of Present Illness Narrative History of Present Illness (Text): 06/12/18 12:08 57 y/o male, pmh including asthma/copd, nkda, c/o rt. wrist pain s/p fall about 2 hours ago. pt. stated that he fall and landed on the rt. wrist from an accident, no cardiopulmonary/neurological signs/symptoms prior to the fall, no head/neck/back/chest/abdomen/pelvis or other extremity injury, no numbness or tingling, no other medical or psychological complaints. Past Medical History - Provider Review Nursing Documentation Reviewed: Yes - Cardiac Hx Cardiac Disorders: No Hx Hypertension: No Hx Peripheral Edema: Yes - Pulmonary Hx Asthma: Yes Hx Chronic Obstructive Pulmonary Disease (COPD): Yes - Neurological Hx Neurological Disorder: No Hx Seizures: No - HEENT Hx HEENT Disorder: No - Renal Hx Renal Disorder: No - Endocrine/Metabolic Hx Endocrine Disorders: No - Hematological/Oncological Hx Blood Disorders: No Hx Cirrhosis: Yes Hx Hepatitis C: Yes - Integumentary Hx Dermatological Disorder: No - Musculoskeletal/Rheumatological Hx Musculoskeletal Disorders: No Hx Falls: No - Gastrointestinal Hx Gastrointestinal Disorders: Yes Hx Fatty Liver Disease: Yes - Genitourinary/Gynecological Hx Genitourinary Disorders: No Hx Sexually Transmitted Diseases: No - Psychiatric Hx Substance Use: No Other/Comment: alcohol abuse - Anesthesia Hx Anesthesia: Yes Hx Anesthesia Reactions: No Hx Malignant Hyperthermia: No - Suicidal Assessment Feels Threatened In Home Enviroment: No Family/Social History - Physician Review Nursing Documentation Reviewed: Yes Family/Social History: Unknown Family HX Smoking Status: Heavy Smoker > 10 Cigarettes Daily Hx Alcohol Use: Yes (beer) Hx Substance Use: No Substance used: heroin Allergies/Home Meds Allergies/Adverse Reactions: Allergies No Known Allergies Allergy (Verified 06/12/18 11:58) Review of Systems - Review of Systems Constitutional: absent: Fatigue, Fevers Eyes: absent: Vision Changes ENT: absent: Hearing Changes Respiratory: absent: SOB, Cough Cardiovascular: absent: Chest Pain Gastrointestinal: absent: Abdominal Pain, Diarrhea, Nausea, Vomiting Musculoskeletal: Arthralgias. absent: Neck Pain, Joint Swelling, Myalgias Skin: absent: Rash, Pruritis Neurological: absent: Headache, Dizziness Psychiatric: absent: Anxiety, Depression, Suicidal Ideation Physical Exam Pain Distress: Moderate - Systems Exam Head: Present: Atraumatic, Normocephalic, Other (no facial bony tenderness or swelling. ). No: Tenderness, Contusion, Swelling, Ecchymosis, Abrasion, Laceration Pupils: Present: PERRL Extroacular Muscles: Present: EOMI Conjunctiva: Present: Normal Ears: Present: NORMAL TM, Normal Canal. No: Erythema Mouth: Present: Moist Mucous Membranes Pharnyx: No: ERYTHEMA, EXUDATE, TONSILS ENLARGED, Peritonsilar Swelling, Uvular Deviation, Muffled/Hoarse Voice, Strider, Soft Palate/Uvular Edema Nose (External): Present: Atraumatic. No: Abrasion, Contusion, Laceration Nose (Internal): Present: Normal Inspection, No Active Bleeding. No: Rhinorrhea, Septal Hematoma, Epistaxis Neck: Present: Normal Range of Motion Respiratory/Chest: Present: Clear to Auscultation, Good Air Exchange. No: Respiratory Distress, Accessory Muscle Use, Wheezes, Decreased Breath Sounds, Rales, Retracting, Rhonchi, Tachypneic, Tender to Palpation Cardiovascular: Present: Regular Rate and Rhythm, Normal S1, S2. No: Murmurs Abdomen: No: Tenderness, Distention, Peritoneal Signs, Rebound, Guarding Back: Present: Normal Inspection. No: CVA Tenderness, Midline Tenderness, Paraspinal Tenderness, Pain with Leg Raise, Decubitus Ulcer Upper Extremity: Present: Normal Inspection, NORMAL PULSES, Neurovascularly Intact, Other (Rt. wrist: +ttp on the distal radial region with mild swelling, no hand tenderness and no scaphoid tenderness, FROM without limitation but with pain, sensation intact, motor 5/5, +radial pulse, capillay refill< 2 seconds, neurovascular intact.). No: Cyanosis, Edema Lower Extremity: Present: Normal Inspection, NORMAL PULSES, Neurovascularly Intact. No: Edema, Tenderness, Swelling Neurological: Present: GCS=15, CN II-XII Intact, Speech Normal, Motor Func Cherelle sly Intact, Normal Cerebellar Funct, Gait Normal, Memory Normal Skin: Present: Warm, Dry, Normal Color. No: Rashes Psychiatric: Present: Alert, Oriented x 3, Normal Insight, Normal Concentration Medical Decision Making ED Course and Treatment: 06/12/18 12:11 -Rt. wrist xray -Percoet -ice pack -observe and reassess 06/12/18 13:02 -Rt. wrist xray: ER wet read: +distal radial mildly displaced impacted fracture and +ulnar styloid fracture. -There is no abrasion/laceration or skin opening from the fracture site or injured arm. -Sug[place]ongue splint applied by me with neurovascular intact, sling given and he feels comfortable. -Pt. feels much better, will discharge home. -Discharge home with sugartongue splint, sling, motrin for mild to moderate pain, percocet for severe pain, copy of the cd provided for the xray, follow up with your own pmd and orthopedic within 2 days, return to the ER for any new or worsening signs or symptoms. - RAD Interpretation Radiology Orders: Date of service: 06/12/2018 PROCEDURE: Right Wrist Radiographs. HISTORY: rt. wrist injury, pain and swelling COMPARISON: None. TECHNIQUE: Three views obtained. FINDINGS: BONES: There is a minimally displaced transverse fracture through the distal radius and a fracture of the base of the ulnar styloid. JOINTS: Normal. No dislocation. SOFT TISSUES: Normal. OTHER FINDINGS: None. IMPRESSION: There is a minimally displaced transverse fracture through the distal radius and a fracture of the base of the ulnar styloid. Head Of Digital: Radiologist - PA / SOCIOCULTURAL ANTHROPOLOGY PROFESSOR / Resident Statement MD/DO has reviewed & agrees with the documentation as recorded. Disposition/Present on Arrival - Present on Arrival Any Indicators Present on Arrival: No History of DVT/PE: No History of Uncontrolled Diabetes: No Urinary Catheter: No History Surgical Site Infection Following: None - Disposition Have Diagnosis and Disposition been Completed?: Yes Diagnosis: Fall, Distal radius fracture, Fracture of ulnar styloid Disposition: HOME/ ROUTINE Disposition Time: 13:04 Patient Plan: Discharge Condition: IMPROVED Additional Instructions: -Discharge home with sugartongue splint, sling, motrin for mild to moderate pain , percocet for severe pain, copy of the cd provided for the xray, follow up with your own pmd and orthopedic within 2 days, return to the ER for any new or worsening signs or symptoms. Prescriptions: Ibuprofen [Motrin] 400 mg PO TID PRN #21 tab PRN Reason: Other oxyCODONE/Acetaminophen [Percocet 5/325 mg Tab] 1 tab PO TID PRN #12 tab PRN Reason: Other Referrals: Mike Sawant MD [Staff Provider] - Follow up with primary [facility] at [facility] [Outside] - Follow up with primary Forms: WORK NOTE
--- NOTE | 2018-06-12 13:07 | RAD ---
Date of service: 06/12/2018 PROCEDURE: Right Wrist Radiographs. HISTORY: rt. wrist injury, pain and swelling COMPARISON: None. TECHNIQUE: Three views obtained. FINDINGS: BONES: There is a minimally displaced transverse fracture through the distal radius and a fracture of the base of the ulnar styloid. JOINTS: Normal. No dislocation. SOFT TISSUES: Normal. OTHER FINDINGS: None. IMPRESSION: There is a minimally displaced transverse fracture through the distal radius and a fracture of the base of the ulnar styloid.
== END 2018-06-12 13:23 | disposition home or self-care (01) ==
LOC: ED 11:39
DX: S52.501A Unspecified fracture of the lower end of right radius, initial encounter for closed fracture (principal); S52.611A Displaced fracture of right ulna styloid process, initial encounter for closed fracture; V18.4XXA Pedal cycle driver injured in noncollision transport accident in traffic accident, initial encounter